=== PATIENT | female | born 1955 | race Caucasian/White ===

== ENCOUNTER → 2016-12-01 | Outpatient (CLI) | payer MEDICAID ==
[2016-12-01 07:46] LABS: Basophils % (A) 0 %; CH 31.4; CHCM 33.8; Eosinophils # (A) 0.1 k/uL (0-0.7); Eosinophils % (A) 2 %; HCT 41.1 % (34.0-46.0); HDW 2.41; HGB 13.3 gm/dL (11.4-16.0); Luc # (Auto) 0.16; Luc % (Auto) 4; Lymphocytes # (A) 1.8 k/uL (1.0-4.8); Lymphocytes % (A) 40 %; MCH 30.2 pg (25.0-35.0); MCHC 32.3 g/dL (31.0-37.0); MCV 93.4 fL (80.0-100.0); Monocytes # (A) 0.3 k/uL (0-1.0); Monocytes % (A) 7 %; Neutrophils # (A) 2.1 k/uL (1.3-7.7); Neutrophils % (A) 47 %; WBC 4.4 k/uL (3.8-10.6); WBC (Perox) 4.38
[2016-12-01 08:31] LABS: ALT 39 U/L (9-52); AST 38 U/L (14-36); Alkaline Phosphatase 82 U/L (38-126); Anion Gap 6 mmol/L; Blood Urea Nitrogen 20 mg/dL (7-17); Calcium 9.6 mg/dL (8.4-10.2); Carbon Dioxide 31 mmol/L (22-30); Chloride 103 mmol/L (98-107); Cholesterol 209 mg/dL (<200); Creatine Kinase 82 U/L (30-135); Glucose 86 mg/dL (74-99); HDL Cholesterol 37 mg/dL (40-60); Non-African American GFR(MDRD) >60 (>60 ml/min/1.73 sqM); Potassium 4.8 mmol/L (3.5-5.1); Sodium 140 mmol/L (137-145); Total Bilirubin 0.5 mg/dL (0.2-1.3); Total Protein 7.3 g/dL (6.3-8.2); Triglycerides 130 mg/dL (<150)
== END | disposition home or self-care (01) ==
LOC: LABWHC1 06:52
PROVIDERS: ATTEND Internal Medicine
DX: E78.00 Pure hypercholesterolemia, unspecified (principal); I10 Essential (primary) hypertension
CPT/HCPCS: 36415; 80053; 80061; 82550; 84443; 85025

== ENCOUNTER → 2017-02-04 | Outpatient (CLI) | payer MEDICAID ==
[2017-02-04 10:05] LABS: ALT 47 U/L (9-52); AST 41 U/L (14-36); Cholesterol 240 mg/dL (<200); Creatine Kinase 147 U/L (30-135); HDL Cholesterol 38 mg/dL (40-60); Triglycerides 165 mg/dL (<150)
== END | disposition home or self-care (01) ==
LOC: LABWHC1 09:48
PROVIDERS: ATTEND Internal Medicine
DX: E78.00 Pure hypercholesterolemia, unspecified (principal)
CPT/HCPCS: 36415; 80061; 82550; 84450; 84460

== ENCOUNTER → 2017-04-08 | Outpatient (CLI) | payer MEDICAID ==
[2017-04-08 07:59] LABS: Cholesterol 172 mg/dL (<200); HDL Cholesterol 44 mg/dL (40-60)
== END | disposition home or self-care (01) ==
LOC: LABWHC1 07:14
PROVIDERS: ATTEND Internal Medicine
DX: E78.00 Pure hypercholesterolemia, unspecified (principal)
CPT/HCPCS: 36415; 80061

== ENCOUNTER → 2017-05-31 | Outpatient (CLI) | payer MEDICAID ==
--- NOTE | 2017-06-01 07:22 | USB ---
Reason for exam: additional evaluation requested from abnormal screening. History: Patient is postmenopausal. Family history of breast cancer in sister at age 52. Took hormonal contraceptives for 4 years. Physical Findings: Nurse did not find any significant physical abnormalities on exam. US Breast Workup Limited RT Right breast ultrasound demonstates a 0.9 x 0.5 x 0.7cm irregular, solid, hypoechoic lesion at 9 o'clock for which a biopsy is recommended. These results were verbally communicated with the patient and result sheet given to the patient on 05/31/17. ASSESSMENT: Suspicious, BI-RAD 4 RECOMMENDATION: Ultrasound core biopsy of the right breast. (9 o'clock). Called Dr. Jc with mammographic findings and has scheduled an appointment for the patient for 05/3017 at 10:[address] Winters. Biopsy scheduled for 06/02/17 at 8:00. PRELIMINARY REPORT CALLED AND FAXED TO DR. WINTERS ON 05/31/17.
== END | disposition home or self-care (01) ==
LOC: RADMAMWWP 14:58
PROVIDERS: ATTEND Obstetrics & Gynecology
DX: R92.8 Other abnormal and inconclusive findings on diagnostic imaging of breast (principal)

== ENCOUNTER → 2017-06-02 | Day surgery (SDC) | payer MEDICAID ==
[2017-06-02 07:43] VITALS: RESP 16; TEMP 98.2; BMI 28.0
[2017-06-02 08:48] VITALS: BP 145/83; PULSE 66
--- NOTE | 2017-06-02 09:12 | USB ---
EXAMINATION TYPE: US biopsy breast VAD RT, MG diagnostic mammo RT wo CAD DATE OF EXAM: 06/02/2017 CLINICAL HISTORY: R92.8 Abn mammogram. TECHNIQUE: Ultrasound guided core biopsy of the right breast mass located at the 9:00 position. COMPARISON: 05/31/2017 FINDINGS: The procedure of ultrasound guided core biopsy was explained to the patient. Benefits, alternatives, and risks were discussed. An informed consent was then obtained. The patient was placed in supine positioning for imaging and for the procedure. The overlying skin was prepped and draped in usual sterile fashion. 8 cc of lidocaine without epinephrine was used as anesthetic into the skin and 7 cc of lidocaine with epinephrine was utilized to anesthetize the subcutaneous tissue up to area of concern in the right breast (0.9 x 0.5 x 0.7 cm irregular, solid, hypoechoic mass at the 9:00 position). Under ultrasound guidance, a 12-gauge vacuum assisted biopsy gun device was used to obtain 7 core samples. Following this, a ribbon-shaped biopsy marker was left in lesion. Postprocedural mammography was performed in the MLO and CC projection with identification of the clip in the mammographic mass without migration. The patient tolerated the procedure well without any immediate complication. The patient was kept in the radiology department for short stay after the procedure and then discharged home in stable condition. IMPRESSION: Successful, uncomplicated ultrasound guided core biopsy of a 0.9 x 0.5 x 0.7 cm irregular, solid, hypoechoic mass at the 9:00 position, full pathology results to follow. Pathology Results: Malignant BREAST, RIGHT, ULTRASOUND GUIDED CORE BIOPSY: INVASIVE DUCTAL CARCINOMA. Recommendation Surgical consult of the right breast. SHAHZAD
== END ==
LOC: RADUSWWP 07:01
PROVIDERS: ATTEND Surgery
DX: C50.911 Malignant neoplasm of unspecified site of right female breast (principal)
CPT/HCPCS: 88305; 19083; G0206; A4648; J2001

== ENCOUNTER 2017-06-10 10:55 | Day surgery (SDC) | payer MEDICAID ==
[2017-06-09 11:52] VITALS: BMI 28.4
[2017-06-10 11:17] VITALS: TEMP 98.4
[2017-06-10] MEDS ORDERED: LACTATED RINGERS 1,000 ML IV ONE (11:33)
[2017-06-10] MEDS ORDERED: LIDOCAINE 1% 20 ML VIAL (10MG/ML) FOR IV START INTRADERMA ONE (11:34)
[2017-06-10] MEDS ORDERED: LIDOCAINE 1% INJ 10MG/ML (20 ML MDV) ONE (11:49)
[2017-06-10] MEDS ORDERED: PROPOFOL 10 MG/ML 20 ML VIAL IV ONE (11:49)
--- NOTE | 2017-06-10 12:09 | P.PCN ---
Date of Procedure: 06/10/17 Procedure(s) Performed: BRIEF HISTORY: Patient is a 62-year-old pleasant , white female, scheduled for an elective colonoscopy as a part of evaluation of prior history of colon polyps. Her last colonoscopy was in 5 years ago. PROCEDURE PERFORMED: Colonoscopy. PREOPERATIVE DIAGNOSIS: History of colon polyps. IV sedation per Anesthesia. PROCEDURE: After informed consent was obtained, the patient, was brought into the endoscopy unit. IV sedation was administered by Anesthesia under continuous monitoring. Digital rectal examination was normal. Initially the Olympus CF- 160 flexible video colonoscope was then inserted in the rectum, gradually advanced into the cecum without any difficulty. Careful examination was performed as the scope was gradually being withdrawn. Ileocecal valve and the appendiceal orifice were visualized and appeared normal. Prep was excellent. Mucosa of the cecum, ascending colon, transverse colon, descending colon, sigmoid colon, and rectum appeared normal. Scattered sigmoid diverticula seen. Retroflexion was performed in the rectum and no lesions were seen. The patient tolerated the procedure well. IMPRESSION: Normal-appearing colon from rectum to cecum with no evidence of colorectal neoplasia Scattered sigmoid diverticulosis . RECOMMENDATIONS: Findings of this examination were discussed with the patient as well as her family. She was advised to have a repeat surveillance colonoscopy in 5 years because of the prior history of colon polyps..
[2017-06-10 12:13] VITALS: RESP 15
[2017-06-10 12:42] VITALS: BP 155/78; PULSE 61
== END 2017-06-10 13:07 | disposition home or self-care (01) ==
LOC: ORWHC2ENDO 10:55
PROVIDERS: ATTEND Internal Medicine Gastroenterology
DX: Z12.11 Encounter for screening for malignant neoplasm of colon (principal); K57.30 Diverticulosis of large intestine without perforation or abscess without bleeding; Z86.010 Personal history of colon polyps; I10 Essential (primary) hypertension; E78.5 Hyperlipidemia, unspecified; Z79.899 Other long term (current) drug therapy
CPT/HCPCS: J2001; J2704; G0105

== ENCOUNTER → 2017-06-12 | Outpatient (CLI) | payer MEDICAID ==
--- NOTE | 2017-06-15 07:57 | BMR ---
EXAMINATION TYPE: MR breast BILAT wo/w con DATE OF EXAM: 06/12/2017 COMPARISON: Screening mammogram dated 05/25/2017, right breast ultrasound dated 05/31/2017, and right breast biopsy dated 06/02/2017. HISTORY: Rt breast cancer, rt shoulder/neck pain TECHNIQUE: A series of fat and water weighted images in the long and short axis views of both breasts are obtained in conjunction with dynamic contrast MRI with subtraction technique. The patient was i njected with 7.5 mL intravenous Gadavist gadolinium contrast. Three-dimensional and additional post processing imaging is created on independent workstation and reviewed during official interpretation of this study. FINDINGS: There is mild symmetric background parenchymal enhancement in breasts that are composed of heterogeno us fibroglandular tissue. No suspicious axillary, internal mammary, or intramammary adenopathy are se en within either breast. Corresponding to the 0.9 x 0.5 x 0.7 cm irregular solid mass at the 9:00 position, biopsy proven inva sive ductal carcinoma, there is an approximately 0.9 x 0.6 x 0.7 cm enhancing mass within the right b reast approximately 7 cm from the nipple at the 9:00 position containing susceptibility artifact from the biopsy marker. This demonstrates type persistent and plateau (type I and type II) kinetics. No o ther suspicious areas of mass or nodule mass enhancement are seen within the right breast. At the 6-6:30 position within the left breast at middle depth on series 301 image 16 and series 701 i mage 38 there is a T2 hyperintense and T1 hypointense 0.4 x 0.6 cm mass demonstrating persistent type I kinetics seen on series 301 image 15, series 701 image 234 and series 701 image 231. No other susp icious mass or nonmass enhancement is seen within the left breast. IMPRESSION: 1. BI-RADS 3-Hvntki-vqkvhj invasive ductal carcinoma within the right breast at the 9:00 position. No evidence of multifocality or multicentricity within the right breast. No suspicious internal mammary , axillary or intramammary adenopathy. 2. Second look ultrasound is recommended for a 0.6 cm mass within the left breast at the 6-6:30 posit ion at middle depth approximately 6 cm from the nipple. Although this is T2 hyperintense this does de monstrate low-grade enhancement. Considerations are for fibroadenoma, inflammatory cyst, or neoplasm. If this is seen under ultrasound percutaneous biopsy is recommended, if not identified on ultrasound MR guided biopsy would be recommended
== END ==
LOC: RADMRIMAIN 09:04
PROVIDERS: ATTEND Surgery
DX: C50.811 Malignant neoplasm of overlapping sites of right female breast (principal)
CPT/HCPCS: 77059; 0159T; A9581

== ENCOUNTER → 2017-06-16 | Outpatient (CLI) | payer MEDICAID ==
--- NOTE | 2017-06-16 10:27 | USB ---
Reason for exam: additional evaluation requested from abnormal screening. History: Patient is postmenopausal and has history of breast cancer at age 62. Family history of breast cancer in sister at age 52. Malignant US biopsy breast VAD RT of the right breast, June 02, 2017. Took hormonal contraceptives for 4 years. US Breast LT Left breast ultrasound includes all four quadrants, the retroareolar region and axilla. Finding demonstrates a 6 x 2 x 3mm oval, cystic lesion at 7 o'clock 4.1cm from nipple, demonstrating increasing through transmission and a well defined posterior wall. This corresponds with the MRI finding. Type 1 persistent enhancement is thought to represent background parenchymal enhancement corresponding to dense tissue background that this cyst is within. These results were verbally communicated with the patient and result sheet given to the patient on 06/19/17. ASSESSMENT: Benign, BI-RAD 2 RECOMMENDATION: Localization and excision of the left breast. (surgical excision on the known right breast cancer)
== END | disposition home or self-care (01) ==
LOC: RADUSWWP 08:04
PROVIDERS: ATTEND Surgery
DX: Z08 Encounter for follow-up examination after completed treatment for malignant neoplasm (principal); Z85.3 Personal history of malignant neoplasm of breast

== ENCOUNTER → 2017-07-08 | Day surgery (SDC) | payer MEDICAID ==
[2017-07-06 10:58] VITALS: BMI 27.8
[~2017-07-08] MED LIST: ALPRAZolam 0.25 MG TAB PO PRN; DEXAMETHASONE SOD PHOSPHATE 10 MG/ML 1 ML VIAL IV ONE; HEPARIN SODIUM,PORCINE 5,000 UNIT/ML 1 ML VIAL SQ ONE; HYDROcodone/APAP 5-325MG 1 EACH TAB PO ONE; HYDROcodone/APAP 5-325MG 1 EACH TAB PO PRN; HYDROmorphone 0.5 MG/0.5 ML SYRINGE IVP ONE; LACTATED RINGERS 1,000 ML IV ONE; LACTATED RINGERS 1,000 ML IV SCH; LIDOCAINE 1% 20 ML VIAL (10MG/ML) FOR IV START INTRADERMA ONE; LIDOCAINE 1% INJ 10MG/ML (20 ML MDV) ONE; LIDOCAINE 1% INJ 10MG/ML (20 ML MDV) SQ ONE; MIDAZOLAM 2 MG/2 ML VIAL ONE; NALOXONE 0.4 MG/ML 1 ML VIAL IV PRN; ONDANSETRON 4 MG/2 ML VIAL IVP ONE; PROPOFOL 10 MG/ML 20 ML VIAL IV ONE; Pre Op ABX Message 1 EACH MISC MISCELLANE ONE; SODIUM BICARB 4% 5 ML VIAL (0.48 MEQ/ML) MISCELLANE ONE; SODIUM CHLORIDE 0.9% 50 ML with ceFAZolin 2,000 MG IV ONE; SUCCINYLCHOLINE CHLORIDE 100 MG/5 ML SYR IV ONE; fentaNYL (PF) 50 MCG/ML 2 ML AMP IV PRN; fentaNYL (PF) 50 MCG/ML 2 ML AMP ONE; traMADol 50 MG TAB PO PRN
--- NOTE | 2017-07-08 09:38 | HP ---
HISTORY AND PHYSICAL CHIEF COMPLAINT: Right breast cancer. HISTORY OF PRESENT ILLNESS: Patient is a 62-year-old female who was seen in the office recently after a diagnostic mammogram and ultrasound revealed a 9 mm mass in the right breast. Ultrasound guided core biopsy revealed invasive ductal cancer. FAMILY HISTORY: Breast cancer in her sister. She does not believe her sister had genetic testing performed. Patient was otherwise asymptomatic. No prior biopsies. Patient had an MRI of bilateral breasts showing the biopsy-proven breast cancer at 9 o'clock with no evidence of multifocality and no suspicious adenopathy. A second-look ultrasound was recommended for a left breast lesion at 6 o'clock. On this second-look, this was thought to be benign. Patient's receptors are ER [place] positive, HER2 [place] negative. She was seen by Oncology for genetic testing, but has decided because of challenges with her insurance coverage to forego those results in the interest of proceeding with lumpectomy, which the patient is interested in. PAST MEDICAL HISTORY: Hypertension, hypercholesterolemia. PAST SURGICAL HISTORY: Tubal ligation, right finger. MEDICATIONS: 1. Hydrochlorothiazide. 2. MVI. 3. Livalo. 4. Fish oil. 5. CoQ 10. ALLERGIES: None. PHYSICAL EXAM: HEENT is normocephalic. Sclerae is nonicteric. CHEST: No deformities. Right breast with recent scar noted. No palpable abnormalities. No adenopathy. Left breast without masses or adenopathy. ABDOMEN: Soft, nontender, nondistended. EXTREMITIES: Without edema. IMPRESSION: A 62-year-old female with newly diagnosed right breast cancer. PLAN: Will proceed with right breast lumpectomy with sentinel lymph node biopsy and wire localization. I will discuss the recent breast ultrasound with Radiology. There may be a typo on that report where they recommend localization and excision of the left breast. The risks of the procedure were discussed in detail with the patient. These were noted to include, but not limited to, bleeding, infection, recurrence, scarring, dimpling, nerve injury, seroma, possible need for additional surgery based on margin results and lymph node findings, possible need for axillary dissection. Additionally, it was discussed with the patient that if her genetic testing did come back positive for BRCA1 or 2, bilateral mastectomy may be reconsidered. The patient understands these risks and wished to proceed. MMODL / IJN: [id number] /
--- NOTE | 2017-07-08 12:43 | NM ---
EXAMINATION TYPE: NM sentinel node injection DATE OF EXAM: 07/08/2017 COMPARISON: NONE HISTORY: Right-sided breast cancer TECHNIQUE AND FINDINGS: The procedure of sentinel lymph node injection was explained to the patient. The benefits, alternatives, and risks were discussed. An informed consent was then obtained. Overlying skin is cleaned with sterile alcohol. Lidocaine buffered with bicarbonate was used as anes thetic into the skin and subcutaneous tissue surrounding the nipple. Following this, 561 uCi Tc 99m Filtered Sulfur Colloid was injected into 4 equivalent doses at 12, 3, 6, and 9:00 position surroundi ng the right nipple intradermally. The injection sites were massaged by orthopaedic technologist for 10 minutes after injection. T he patient tolerated the procedure well without any immediate complication. The patient was kept in the radiology department for short stay after the procedure and then taken to surgery for surgical pr ocedure what is presumed intraoperative gamma probe will be used for sentinel lymph node detection. IMPRESSION: Right breast radiotracer injection for sentinel node localization as above.
[2017-07-08 15:13] VITALS: TEMP 97.6
[2017-07-08 15:18] VITALS: RESP 16
--- NOTE | 2017-07-08 15:38 | MM ---
EXAM: Needle localization with wire placement. CLINICAL HISTORY: Biopsy-proven invasive ductal carcinoma June 02, 2017 TECHNIQUE: Needle localization with wire placement and surgical excision of area of concern in the right breast. COMPARISON: Right breast mammogram and ultrasound June 02, 2017 and older studies. FINDINGS: The procedure of needle localization with wire placement and than surgical excision was explained to the patient. Benefits, alternatives, and risks were discussed. An informed consent was then obtained. The shortest pathway for procedure was chosen. Shortest pathway was lateral approach. The overlying skin was prepped and draped in usual sterile fashion. Lidocaine was used as anesthetic into the skin and subcutaneous tissue up to the level of area of concern. A 7 cm needle was used. It was placed via a lateral approach under mammographic guidance. Subsequent 90 degrees mammogram show the needle to be in satisfactory position relative to the targeted area. At this point, wire was placed and the needle was withdrawn. The wire was fixed to patient's skin. Images were marked for surgeon. The patient tolerated the procedure well without any immediate complication. The patient was kept in the radiology department for short stay after the procedure and then taken to surgery for surgical excision. Targeted clip and wire are identified in specimen mammogram. The patient was kept in hospital for short stay after the procedure and then discharged home in stable condition. IMPRESSION: Successful, uncomplicated needle localization with wire placement and surgical excision of targeted biopsy clip in the right breast, full pathology results to follow. Pathology Results: Malignant A. LYMPH NODE, RIGHT SENTINEL #1, BIOPSY: LYMPH NODE NEGATIVE FOR METASTASIS, TRISTIN AND CYTOKERATIN IMMUNOHISTOCHEMICAL STAINS ARE CONFIRMATORY (CONTROLS APPROPRIATE). B. LYMPH NODE, RIGHT SENTINEL #2, BIOPSY: LYMPH NODE NEGATIVE FOR METASTASIS, TRISTIN AND CYTOKERATIN IMMUNOHISTOCHEMICAL STAINS ARE CONFIRMATORY (CONTROLS APPROPRIATE). C. LYMPH NODE, RIGHT SENTINEL #3, BIOPSY: LYMPH NODE NEGATIVE FOR METASTASIS, TRISTIN AND CYTOKERATIN IMMUNOHISTOCHEMICAL STAINS ARE CONFIRMATORY (CONTROLS APPROPRIATE). D. BREAST, RIGHT, WIRE GUIDED LOCALIZATION AND RESECTION: INVASIVE DUCTAL CARCINOMA, DUCT CARCINOMA IN SITU, FIBROCYSTIC CHANGE WITH FOCAL ATYPICAL DUCTAL HYPERPLASIA. ATYPICAL LOBULAR HYPERPLASIA. SCAR. E. BREAST, RIGHT, NEW LATERAL MARGIN, EXCISIONAL BIOPSY: BENIGN BREAST WITH PROMINENT ADIPOSE TISSUE AND FIBROCYSTIC CHANGE. BENIGN LYMPH NODE. F. BREAST, RIGHT, NEW SUPERIOR MARGIN, BIOPSY: BENIGN BREAST WITH PROMINENT ADIPOSE TISSUE AND FIBROCYSTIC CHANGE. BENIGN LYMPH NODE. Recommendation Appropriate therapy and follow up. [facility]
[2017-07-08 16:18] VITALS: BP 147/66; PULSE 70
--- NOTE | 2017-07-08 16:45 | P.OP ---
Date of Procedure: 07/08/17 Procedure(s) Performed: PREOPERATIVE DIAGNOSIS: Right breast cancer POSTOPERATIVE DIAGNOSIS: Same PROCEDURE: Right Breast wire localization lumpectomy with sentinel lymph node biopsy SURGEON: Vianey EBL: Minimal ANESTHESIA: General COMPLICATIONS: None OPERATIVE PROCEDURE: Patient was placed on the operating room table in the supine position. 2 mL of methylene blue was injected into the subareolar space. The breast was then massaged for 5 minutes. The right axilla was addressed at that time. The hot spot in the right axilla was identified. A small curvilinear incision was made using the scalpel. Dissection down through the tic anus tissues took place using electrocautery. Using the neoprobe I identified a total of 3 sentinel lymph nodes. 2 of these were blue in color. These were all removed and sent to pathology for close examination. Frozen sections from these lymph nodes were negative for metastatic disease. No bleeding was seen. The subcutaneous tissues were closed using 3-0 Vicryl sutures. The skin was closed using 4-0 Monocryl sutures. The wire entrance site was then addressed. This was present at the 9:00 location. A curvilinear incision was made medial to the wire entrance site. I followed the wire down into the breast tissue. An adequate lumpectomy specimen then took place around the wire. Margins of 1.5-2 cm worth attempted to be achieved. Upon palpation of the specimen I felt that the closest margins were likely the lateral and superior margin. For that reason an additional small portion of superior and lateral margins were removed. Later after formal closure the lumpectomy specimen was colored the appropriate 6 colors and the new margin of the superior and the lateral specimen were also painted the appropriate color. The BioSorb sizers were utilized. I chose to place a 2 x 3 cm BioSorb into the lumpectomy site. This was sutured circumferentially using 3-0 Vicryl sutures. The lumpectomy cavity was also closed using 3-0 Vicryl sutures. The skin was closed using a running 4-0 Monocryl stitch. Steri-Strips and sterile dressings were applied. DISPOSITION: Stable to recovery room
--- NOTE | 2017-07-14 15:05 | CDI ---
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 Please respond to the clarification below the line at the bottom and electronically sign. The CDI & [facility] Coding staff will review the response and follow-up if needed. Please note: Queries are made part of the Legal Health Record. If you have any questions, please contact the author of this message via ITS. Dr. Winters Ms Conklin was seen on 07/08 for breast lumpectomy and sentinel lymph node biopsy. The depth of the sentinel lymph node that was biopsied is needed for clarification purposes. Please clarify if the depth of the lymph node was: Deep Superficial/ Simple Other, please specify Unable to determine Thank you very much for your time. Location for sentinel node is deep. [facility]
== END ==
LOC: OR 10:31
PROVIDERS: ATTEND Surgery
DX: C50.811 Malignant neoplasm of overlapping sites of right female breast (principal); I10 Essential (primary) hypertension; E78.00 Pure hypercholesterolemia, unspecified; E78.5 Hyperlipidemia, unspecified; Z87.891 Personal history of nicotine dependence; Z79.899 Other long term (current) drug therapy; Z80.3 Family history of malignant neoplasm of breast
CPT/HCPCS: 19301; 38525; 88342; 88331; 88307; 88341; 76098; 19281; 38792; A4648; A9541; J2250; J1644; J1100; J2405; J2001; J3010; J0690; J0330; J2704; J1170

== ENCOUNTER → 2017-08-19 | Outpatient (CLI) | payer MEDICAID ==
--- NOTE | 2017-08-19 21:55 | BD ---
EXAMINATION TYPE: MG DEXA axial skeleton. DATE OF EXAM: 08/19/2017 COMPARISON: 09.26.2015 CLINICAL HISTORY: 62 YR OLD FEMALE: ICD-10 CODE: C50.81 MALIG. NEOPLASM OF OVERLAPPING BREAST Height: 66.3 Weight: 180 FRAX RISK QUESTIONS: Alcohol (3 or more units per day): NO Family History (Parent hip fracture): NO Glucocorticoids (More than 3mos): NO (Ex: prednisone, prednisolone, methylprednisolone, dexamethasone, and hydrocortisone). History of Fracture in Adulthood: NO Secondary Osteoporosis: NO 1. Type 1 Diabetes: NO 2. Hyperthyroidism: NO 3. Menopause before 45: NO 4. Malnutrition: NO 5. Chronic liver disease: NO Rheumatoid Arthritis: NO Current Tobacco Use: NO RISK FACTORS HISTORY OF: FINGER ONLY...<50 YRS OLD Family History of Osteoporosis: NO Active: YES Diet low in dairy products/other sources of calcium: NO Postmenopausal woman: NATURAL AT AGE 57 YRS OLD Hyperparathyroidism: NO Adrenal Insufficiency: NO MEDICATIONS: Additional Medications: ANTI-ESTROGEN ARLEN, BP MEDS, HX OF BREAST CA, 2016, MULTIVITAMIN, VIT E, STATIN FOR CHOLESTEROL. Additional History: HX OF BREAST CANCER, EXAM MEASUREMENTS: Bone mineral densitometry was performed using the CRMnext System. Bone mineral density as measured about the Lumbar spine is: ----- L1-L4(G/cm2): 1.394 T Score Values are as follows: ----- L1: 0.3 ----- L2: 1.1 ----- L3: 2.6 ----- L4: 2.6 ----- L1-L4: 1.8 Bone mineral density has: Increased 0.6% since study of: 09.26.2015 Bone mineral density about the R hip (g/cm2): 1.123 Bone mineral density about the L hip (g/cm2): 1.040 T Score values are as follows: -----R Neck: -0.5 -----L Neck: -0.8 -----R Total: 0.9 -----L Total: 0.3 Bone mineral density has: Decreased -1.6% since study of: 09.26.2015 FRAX%S: THEREIS A 6.8% CHANCE OF A MAJOR OSTEOPOROTIC FX AND A 0.3% FOR HIP FX.....PROBABILITY OF FX IN 10 YRS TIME IMPRESSION: Normal (Values between +1 and -1 indicate normal bone mass). Consider repeating this study in 5 year s or sooner if there is some new clinical indication. NOTE: T-SCORE=SD OF THE YOUNG ADULT MEAN.
== END | disposition home or self-care (01) ==
LOC: RADBDWWP 07:17
PROVIDERS: ATTEND Internal Medicine Hematology & Oncology
DX: C50.811 Malignant neoplasm of overlapping sites of right female breast (principal); N95.1 Menopausal and female climacteric states
CPT/HCPCS: 77080

== ENCOUNTER → 2017-09-14 | Outpatient (CLI) | payer MEDICAID ==
--- NOTE | 2017-09-20 11:28 | HM ---
HOLTER MONITOR REPORT The patient was monitored for 24 hours. The baseline rhythm is normal sinus rhythm with normal conduction. The average rate 63 beats per minute, minimum 49, maximum 141 beats per minute. Ventricular ectopic activity was present in the form of rare single PVCs. Supraventricular ectopic activity was present in form of rare single PACs. There was short bursts of atrial fibrillation at different times during the tracings. No diary was available. CONCLUSION: 1. Sinus mechanism baseline rhythm with short bursts of paroxysmal atrial fibrillation. 2. Rare ventricular ectopic activity. 3. Rare supraventricular ectopic activity. 4. No diary was available. MMODL / IJN: [id number] /
== END | disposition home or self-care (01) ==
LOC: RADECHMAIN 12:04
PROVIDERS: ATTEND Internal Medicine Interventional Cardiology
DX: I48.0 Paroxysmal atrial fibrillation (principal); I49.3 Ventricular premature depolarization
CPT/HCPCS: 93225; 93226

== ENCOUNTER → 2017-10-20 | Outpatient (CLI) | payer MEDICAID ==
[2017-10-20 08:49] LABS: Basophils % (A) 0 %; Eosinophils # (A) 0.1 k/uL (0-0.7); Eosinophils % (A) 3 %; HCT 39.4 % (34.0-46.0); HGB 13.1 gm/dL (11.4-16.0); Lymphocytes # (A) 0.7 k/uL (1.0-4.8); Lymphocytes % (A) 17 %; MCH 29.6 pg (25.0-35.0); MCHC 33.2 g/dL (31.0-37.0); Mean Platelet Volume 6.9; Monocytes # (A) 0.3 k/uL (0-1.0); Monocytes % (A) 8 %; Neutrophils # (A) 2.8 k/uL (1.3-7.7); Neutrophils % (A) 71 %; Platelet Count 250 k/uL (150-450); RBC 4.43 m/uL (3.80-5.40); RDW 13.2 % (11.5-15.5)
[2017-10-20 08:56] LABS: Appearance,Urine Clear (Clear); Bilirubin,Urine Negative (Negative); Blood,Urine Negative (Negative); Color,Urine Yellow; Glucose,Urine (UA) Negative (Negative); Ketones,Urine Negative (Negative); Leukocyte Esterase,Urine Trace (Negative); Mucus,Urine Rare /hpf; Nitrite,Urine Negative (Negative); PH, Urine 7.5 (5.0-8.0); Protein,Urine Trace (Negative); RBC,Urine 1 /hpf (0-5); Specific Gravity,Urine 1.018 (1.001-1.035); Squamous Epithelial Cell,Urine <1 /hpf (0-4); Urobilinogen,Urine <2.0 mg/dL (<2.0); WBC,Urine 2 /hpf (0-5)
[2017-10-20 09:51] LABS: ALT 57 U/L (9-52); AST 42 U/L (14-36); Albumin 4.4 g/dL (3.5-5.0); Alkaline Phosphatase 88 U/L (38-126); Anion Gap 12 mmol/L; Blood Urea Nitrogen 21 mg/dL (7-17); Calcium 9.8 mg/dL (8.4-10.2); Carbon Dioxide 29 mmol/L (22-30); Chloride 100 mmol/L (98-107); Cholesterol 158 mg/dL (<200); Creatine Kinase 82 U/L (30-135); Glucose 86 mg/dL (74-99); HDL Cholesterol 36 mg/dL (40-60); LDL Cholesterol,Calculated 97 mg/dL (0-99); Magnesium 2.1 mg/dL (1.6-2.3); Potassium 4.6 mmol/L (3.5-5.1); Sodium 141 mmol/L (137-145); T4, Free (Free Thyroxine) 0.91 ng/dL (0.78-2.19); Total Bilirubin 0.4 mg/dL (0.2-1.3); Total Protein 7.1 g/dL (6.3-8.2); Triglycerides 123 mg/dL (<150); Uric Acid 5.2 mg/dL (3.7-7.4)
[2017-10-20 19:31] LABS: Hemoglobin A1C 5.5 % (4.0-6.0)
== END | disposition home or self-care (01) ==
LOC: LABWHC1 08:31
PROVIDERS: ATTEND Internal Medicine
DX: I10 Essential (primary) hypertension (principal); E78.00 Pure hypercholesterolemia, unspecified
CPT/HCPCS: 36415; 80053; 80061; 81001; 82550; 83036; 83735; 84439; 84443; 84550; 85025

== ENCOUNTER → 2017-10-27 | Outpatient (CLI) | payer MEDICAID ==
--- NOTE | 2017-10-27 11:34 | US ---
EXAMINATION TYPE: US abdomen complete DATE OF EXAM: 10/27/2017 COMPARISON: NONE CLINICAL HISTORY: Abnormal results liver R94.5. Pt states recent abnormal LFT's EXAM MEASUREMENTS: Liver Length: 14.2 cm Gallbladder Wall: 0.2 cm CBD: 0.5 cm Spleen: 10.6 cm Right Kidney: 11.2 x 4.0 x 5.5 cm Left Kidney: 10.5 x 4.6 x 4.3 cm Pancreas: wnl Liver: Appeared wnl Gallbladder: wnl Evidence for sonographic Javier's sign: No CBD: wnl Spleen: wnl Right Kidney: wnl Left Kidney: wnl, lower pole gassed out Upper IVC: wnl Abd Aorta: wnl IMPRESSION: 1. No acute ultrasound abnormality.
== END | disposition home or self-care (01) ==
LOC: RADUSWWP 10:56
PROVIDERS: ATTEND Internal Medicine
DX: R94.5 Abnormal results of liver function studies (principal)
CPT/HCPCS: 76700

== ENCOUNTER → 2018-01-03 | Outpatient (CLI) | payer MEDICAID ==
--- NOTE | 2018-02-07 16:55 | EM ---
EVENT MONITOR AGE:: 62 SEX:: F INDICATIONS:: History of recurrent palpitations. The event monitor shows: 1. Sinus mechanism. 2. Short runs of nonsustained atrial tachycardia, nonsustained. 3. No Luis arrhythmias. MMODL / IJN: [id number] /
== END | disposition home or self-care (01) ==
LOC: RADECHMAIN 12:32
PROVIDERS: ATTEND Internal Medicine Interventional Cardiology
DX: I47.1 Supraventricular tachycardia (principal); I48.0 Paroxysmal atrial fibrillation
CPT/HCPCS: 93270; 93271

== ENCOUNTER → 2018-03-18 | Outpatient (CLI) | payer MEDICAID ==
--- NOTE | 2018-03-18 07:43 | US ---
EXAMINATION TYPE: US carotid duplex BILAT DATE OF EXAM: 03/18/2018 COMPARISON: NONE CLINICAL HISTORY: R09.89 Other specified symptoms and signs involvin. Bruit EXAM MEASUREMENTS: RIGHT: Peak Systolic Velocity (PSV) cm/sec ----- Right CCA: 93.8 ----- Right ICA: 93.8 ----- Right ECA: 100 ICA/CCA ratio: 1.0 RIGHT: End Diastole cm/sec ----- Right CCA: 29.8 ----- Right ICA: 44.1 ----- Right ECA: 21.7 LEFT: Peak Systolic Velocity (PSV) cm/sec ----- Left CCA: 94.4 ----- Left ICA: 116 ----- Left ECA: 105 ICA/CCA ratio: 1.23 LEFT: End Diastole cm/sec ----- Left CCA: 33.5 ----- Left ICA: 52.8 ----- Left ECA: 26.1 VERTEBRALS (direction of flow): Right Vertebral: Antegrade Left Vertebral: Antegrade Rhythm: Normal Minimal plaque bilateral bifurcations. No evidence of increased velocities. No evidence of significan t stenosis IMPRESSION: No hemodynamically significant stenosis identified. Criteria for Assigning % of Stenosis / Diameter reduction (Estimation based on the indirect measurements of the internal carotid artery velocities (ICA PSV). 1. Normal (no stenosis)=ICA PSV < 125 cm/s: ratio < 2.0: ICA EDV<40 cm/s. 2. Less than 50% stenosis=ICA PSV < 125 cm/s: ratio < 2.0: ICA EDV<40 cm/s. 3. 50 to 69% stenosis=ICA PSV of 125 to 230 cm/s: ration 2.0 ? 4.0: ICA EDV 40-100 cm/s. 4. Greater than 70% stenosis to near occlusion= ICA PSV > 230 cm/s: ratio > 4.0: ICA EDV > 100 cm/s. 5. Near occlusion= ICA PSV velocities may be low or undetectable: variable ratio and ICA EDV. 6. Total occlusion=unable to detect flow.
== END | disposition home or self-care (01) ==
LOC: RADUSWWP 07:04
PROVIDERS: ATTEND Internal Medicine Interventional Cardiology
DX: R09.89 Other specified symptoms and signs involving the circulatory and respiratory systems (principal)
CPT/HCPCS: 93880

== ENCOUNTER → 2018-04-12 | Outpatient (CLI) | payer MEDICAID ==
--- NOTE | 2018-04-12 08:16 | MM ---
Reason for exam: follow-up at short interval from prior study. Last mammogram was performed 10 months ago. History: Patient is postmenopausal and has history of breast cancer at age 62. Family history of breast cancer in sister at age 52. Malignant MG pre op needle loc RT of the right breast, July 08, 2017. Lumpectomy of the right breast, July 08, 2017. Malignant US biopsy breast VAD RT of the right breast, June 02, 2017. Radiation therapy, September 2016. Took hormonal contraceptives for 4 years. Taking antineoplastic beginning at age 62. Physical Findings: Nurse did not find any significant physical abnormalities on exam. MG 3D Diag Mammo W/Cad JAYCEE Bilateral CC and MLO view(s) were taken. XCCL and LM view(s) were taken of the right breast. Prior study comparison: June 02, 2017, right breast MG diagnostic mammo RT wo CAD. May 26, 2017, bilateral MG 3d screening mammo w/cad. The breast tissue is heterogeneously dense. This may lower the sensitivity of mammography. No significant new findings when compared with previous films. These results were verbally communicated with the patient and result sheet given to the patient on 04/12/18. ASSESSMENT: Benign, BI-RAD 2 RECOMMENDATION: Follow-up diagnostic mammogram of both breasts in 1 year.
== END | disposition home or self-care (01) ==
LOC: RADMAMWWP 06:57
PROVIDERS: ATTEND Radiology Radiation Oncology
DX: Z08 Encounter for follow-up examination after completed treatment for malignant neoplasm (principal); Z85.3 Personal history of malignant neoplasm of breast
CPT/HCPCS: 77062; 77066

== ENCOUNTER → 2018-05-19 | Outpatient (CLI) | payer MEDICAID ==
--- NOTE | 2018-05-19 14:41 | XR ---
EXAMINATION TYPE: XR wrist complete BILATERAL DATE OF EXAM: 05/19/2018 CLINICAL HISTORY: pain TECHNIQUE: Frontal, lateral and oblique images of the left wrist are obtained. COMPARISON: None. FINDINGS: There is no acute fracture/dislocation evident. The joint spaces appear within normal gonzalez its. The overlying soft tissue appears unremarkable. IMPRESSION: There is no acute fracture or dislocation seen. ICD 10 NO FRACTURE, INITIAL EVALUATION EXAMINATION TYPE: XR wrist complete BILATERAL DATE OF EXAM: 05/19/2018 CLINICAL HISTORY: pain TECHNIQUE: Frontal, lateral and oblique images of the right wrist are obtained. COMPARISON: None. FINDINGS: There is no acute fracture/dislocation evident. The joint spaces appear within normal limits. The o verlying soft tissue appears unremarkable.
--- NOTE | 2018-05-19 14:42 | XR ---
EXAMINATION TYPE: XR chest 1V DATE OF EXAM: 05/19/2018 HISTORY: Shortness of breath. COMPARISON: 07/10/2017 TECHNIQUE: Single view of the chest is submitted. FINDINGS: Demonstrated are scattered senescent parenchymal change. There is no evidence for focal infiltrate. The heart is stable. Hilar and mediastinal structures are within normal limits. Degenerative changes are seen of the dorsal spine. Postoperative changes right breast. IMPRESSION: 1. Chronic changes without evidence for acute pulmonary disease.
== END | disposition home or self-care (01) ==
LOC: RADXRMAIN 13:59
PROVIDERS: ATTEND Nurse Practitioner Family
DX: R22.1 Localized swelling, mass and lump, neck (principal); R22.30 Localized swelling, mass and lump, unspecified upper limb
CPT/HCPCS: 71045

== ENCOUNTER → 2018-05-20 | Outpatient (CLI) | payer MEDICAID ==
[2018-05-20 09:27] LABS: Basophils % (A) 0 %; Eosinophils # (A) 0.1 k/uL (0-0.7); Eosinophils % (A) 2 %; HCT 39.1 % (34.0-46.0); HGB 13.3 gm/dL (11.4-16.0); Lymphocytes % (A) 21 %; MCH 31.1 pg (25.0-35.0); MCHC 34.1 g/dL (31.0-37.0); MCV 91.1 fL (80.0-100.0); Mean Platelet Volume 6.3; Monocytes # (A) 0.3 k/uL (0-1.0); Monocytes % (A) 7 %; Neutrophils % (A) 66 %; Platelet Count 293 k/uL (150-450); RBC 4.29 m/uL (3.80-5.40); RDW 12.7 % (11.5-15.5); WBC 4.5 k/uL (3.8-10.6)
[2018-05-20 17:24] LABS: Hemoglobin A1C 5.5 % (4.0-6.0)
[2018-05-20 19:43] LABS: Albumin 4.6 g/dL (3.80-4.90); Albumin/Globulin Ratio 2.3 (1.20-2.10); Anion Gap 9.5 mmol/L (4.00-12.00); Calcium 9.7 mg/dL (8.7-10.3); Carbon Dioxide 27.5 mmol/L (21.6-31.8); LDL Cholesterol,Calculated 55.6 mg/dL (0.0-131.0); Potassium 4.7 mmol/L (3.5-5.5); Total Bilirubin 0.5 mg/dL (0.2-1.2); Total Protein 6.6 g/dL (6.2-8.2); Uric Acid 5.5 mg/dL (2.9-7.7); VLDL Calculation 18.4 mg/dL (5.00-40.00)
[2018-05-20 19:51] LABS: T4, Free (Free Thyroxine) 1.2 ng/dL (0.80-1.80)
== END | disposition home or self-care (01) ==
LOC: LABWHC1 08:38
PROVIDERS: ATTEND Nurse Practitioner Family
DX: Z00.00 Encounter for general adult medical examination without abnormal findings (principal); I10 Essential (primary) hypertension; I48.0 Paroxysmal atrial fibrillation; E78.00 Pure hypercholesterolemia, unspecified
CPT/HCPCS: 36415; 80053; 80061; 83036; 84439; 84443; 84550; 85025

== ENCOUNTER → 2018-06-30 | Outpatient (CLI) | payer MEDICAID ==
[2018-07-01 04:16] LABS: Rheumatoid Factor 10 IU/mL (0-15)
[2018-07-01 04:24] LABS: Vitamin D 25 Hydroxy 22.3 ng/mL (30.0-100.0)
[2018-07-01 04:26] LABS: ALT 35 U/L (8-44); AST 37 U/L (13-35); C Reactive Protein <0.4 mg/dL (0.0-0.8); Creatine Kinase 140 U/L (26-186); Uric Acid 4.4 mg/dL (2.9-7.7)
[2018-07-01 04:51] LABS: Cyclic Citrullinated Pep IgG NEGATIVE (NEGATIVE)
[2018-07-01 05:02] LABS: Angiotensin-1 Converting Enz. 27 U/L (8-52)
[2018-07-01 10:37] LABS: HLA B27 NEGATIVE
[2018-07-01 20:46] LABS: Vitamin D, 1, 25-Dihydroxy 44 pg/mL (20 - 79)
== END | disposition home or self-care (01) ==
LOC: LABWHC1 16:38
PROVIDERS: ATTEND Internal Medicine Rheumatology
DX: M13.0 Polyarthritis, unspecified (principal)
CPT/HCPCS: 36415; 82164; 82306; 82550; 82652; 83520; 84450; 84460; 84550; 85652; 86038; 86140; 86200; 86431; 86812

== ENCOUNTER → 2019-04-17 | Outpatient (CLI) | payer MEDICAID ==
--- NOTE | 2019-04-17 09:17 | MM ---
Reason for exam: additional evaluation requested from prior study. Last mammogram was performed 1 year ago. History: Patient is postmenopausal and has history of breast cancer at age 62. Family history of breast cancer in sister at age 52. Malignant MG pre op needle loc RT of the right breast, July 08, 2017. Lumpectomy of the right breast, July 08, 2017. Malignant US biopsy breast VAD RT of the right breast, June 02, 2017. Radiation therapy, September 2016. Took hormonal contraceptives for 4 years. Taking antineoplastic for 2 years beginning at age 62. Physical Findings: Nurse did not find any significant physical abnormalities on exam. MG 3D Diag Mammo W/Cad JAYCEE Bilateral CC and MLO view(s) were taken. Prior study comparison: April 12, 2018, bilateral MG 3d diag mammo w/cad JAYCEE. June 02, 2017, right breast MG diagnostic mammo RT wo CAD. The breast tissue is heterogeneously dense. This may lower the sensitivity of mammography. Post surgical and post therapy changes right breast. Biozorb posterior upper outer quadrant on the right. No significant new findings when compared with previous films. These results were verbally communicated with the patient and result sheet given to the patient on 04/17/19. ASSESSMENT: Probably benign, BI-RAD 3 RECOMMENDATION: Follow-up diagnostic mammogram of both breasts in 1 year.
== END | disposition home or self-care (01) ==
LOC: RADMAMWWP 07:03
PROVIDERS: ATTEND Radiology Radiation Oncology
DX: C50.411 Malignant neoplasm of upper-outer quadrant of right female breast (principal); Z17.0 Estrogen receptor positive status [ER+]; Z92.3 Personal history of irradiation
CPT/HCPCS: 77062; 77066

== ENCOUNTER → 2019-09-05 | Outpatient (CLI) | payer MEDICAID ==
--- NOTE | 2019-09-05 09:58 | BD ---
EXAMINATION TYPE: Axial Bone Density DATE OF EXAM: 09/05/2019 COMPARISON: 08/19/2017 CLINICAL HISTORY: Height: 66 IN Weight: 172 LBS RISK FACTORS HISTORY OF: Active: YES Diet low in dairy products/other sources of calcium: YES Postmenopausal woman: AGE 42 Take estrogen and/or progesterone medications: NOT NOW How long: TOOK CONTROL PILLS MEDICATIONS: Additional Medications: CALCIUM, VIT D, MULTI VIT, FEMARA, BLOOD PRESSURE MEDS, HEART MEDS, BLOOD THI NNER, CHOLESTEROL MEDS Additional History: BREAST CANCER WITH RADIATION EXAM MEASUREMENTS: Bone mineral densitometry was performed using the [employer] System. Bone mineral density as measured about the Lumbar spine is: ----- L1-L4(G/cm2): 1.355 T Score Values are as follows: ----- L2: 0.8 ----- L3: 1.3 ----- L4: 2.4 ----- L1-L4: 1.5 Bone mineral density has: Decreased -4.2% since study of: 08/19/2017 Bone mineral density about the R hip (g/cm2): 0.938 Bone mineral density about the L hip (g/cm2): 0.913 T Score values are as follows: -----R Neck: -0.7 -----L Neck: -0.9 -----R Total: 0.8 -----L Total: 0.2 Bone mineral density has: Decreased -1.4% since study of: 08/19/2017 IMPRESSION: No evidence for osteoporosis or osteopenia. NOTE: T-SCORE=SD OF THE YOUNG ADULT MEAN.
== END | disposition home or self-care (01) ==
LOC: RADBDWWP 07:59
PROVIDERS: ATTEND Internal Medicine Hematology & Oncology
DX: C50.811 Malignant neoplasm of overlapping sites of right female breast (principal); I10 Essential (primary) hypertension; E78.5 Hyperlipidemia, unspecified; Z71.3 Dietary counseling and surveillance
CPT/HCPCS: 77080

== ENCOUNTER → 2019-09-15 | Outpatient (CLI) | payer MEDICAID ==
[2019-09-15 07:24] LABS: Basophils % (A) 0 %; Eosinophils # (A) 0.1 k/uL (0-0.7); Eosinophils % (A) 2 %; HCT 39.5 % (34.0-46.0); HGB 13.3 gm/dL (11.4-16.0); Lymphocytes # (A) 1.3 k/uL (1.0-4.8); Lymphocytes % (A) 36 %; MCH 30.3 pg (25.0-35.0); MCHC 33.6 g/dL (31.0-37.0); MCV 90.2 fL (80.0-100.0); Mean Platelet Volume 6.5; Monocytes # (A) 0.3 k/uL (0-1.0); Monocytes % (A) 8 %; Neutrophils # (A) 1.8 k/uL (1.3-7.7); Neutrophils % (A) 49 %; Platelet Count 281 k/uL (150-450); RBC 4.38 m/uL (3.80-5.40); RDW 12.2 % (11.5-15.5); WBC 3.6 k/uL (3.8-10.6)
[2019-09-15 10:32] LABS: African American GFR (CKD) 79.4 (60.0-200.0); Albumin 4.4 g/dL (3.80-4.90); Albumin/Globulin Ratio 2.32 (1.60-3.17); Anion Gap 6.5 mmol/L (4.00-12.00); BUN/Creat Ratio 17.78 Ratio (12.00-20.00); Calcium 9.7 mg/dL (8.7-10.3); Carbon Dioxide 28.5 mmol/L (21.6-31.8); Chol/HDL Ratio 3.15; Globulin 1.9 g/dL (1.6-3.3); LDL Cholesterol,Calculated 58.4 mg/dL (0.0-131.0); Non-African American GFR(CKD) 68.5 (60.0-200.0); Total Bilirubin 0.6 mg/dL (0.2-1.2); Total Protein 6.3 g/dL (6.2-8.2); VLDL Calculation 14.6 mg/dL (5.00-40.00)
== END | disposition home or self-care (01) ==
LOC: LABWHC1 06:49
PROVIDERS: ATTEND Internal Medicine
DX: Z00.00 Encounter for general adult medical examination without abnormal findings (principal)
CPT/HCPCS: 36415; 80053; 80061; 84443; 85025

== ENCOUNTER 2020-02-13 19:05 | Emergency (ER) | payer MEDICAID ==
[2020-02-13 19:13] VITALS: RESP 18
[2020-02-13] MEDS ORDERED: SODIUM CHLORIDE 0.9% 500 ML 500 ML IV STA (19:37)
--- NOTE | 2020-02-13 20:09 | ED ---
Arrhythmia/Palpitations HPI - General Chief Complaint: Arrhythmia/Palpitations Stated Complaint: irregular heart rate Time Seen by Provider: 02/13/20 19:10 Source: patient Mode of arrival: wheelchair Limitations: no limitations - History of Present Illness Initial Comments: Patient is a 64-year-old female with past history of right breast cancer, hypert ension, hyperlipidemia presents to the emergency room with reported palpitations. States that her symptoms started around noon. She does have a history of paroxysmal A. fib. She takes Toprol and Xarelto. Did take her medications today as directed. Was at work when symptoms started. She states she took a second Toprol around 1:[address] Mccracken has recommended that she does this when her heart rate feels like it is fast. States she had persistent symptoms and around 6 she took an additional Toprol. She took her blood pressure which was reportedly around 140/110 systolic. Because of the elevated diastolic she did come into the car for evaluation. Reports that her palpitations are somewhat improved however still detectable. She denies any chest pain. No history of coronary disease. No cough or hemoptysis. No fevers or chills. Denies any abdominal pain. No back or flank pain. No recent medication changes. Denies significant caffeine intake. No unilateral numbness or weakness. No other alleviating, precipitating or modifying factors - Related Data Home Medications Medication Instructions Recorded Confirmed Rosuvastatin [Crestor] 10 mg PO DAILY 07/06/17 02/13/20 [place]-3 Fatty Acids/Fish Oil [Fish 1 cap PO DAILY 07/10/17 02/13/20 Oil 1,000 mg Softgel] Ubidecarenone [Co Q-10] 200 mg PO DAILY 07/10/17 02/13/20 Metoprolol Succinate (ER) [Toprol 12.5 mg PO DAILY 07/11/17 02/13/20 XL] Letrozole [Femara] 2.5 mg PO DAILY 02/13/20 02/13/20 Losartan/Hydrochlorothiazide 1 tab PO DAILY 02/13/20 02/13/20 [Losartan-Hctz 100-25 mg Tab] Multivit-Min/FA/Lycopen/Lutein 1 tab PO DAILY 02/13/20 02/13/20 [Centrum Silver Tablet] Rivaroxaban [Xarelto] 20 mg PO DAILY 02/13/20 02/13/20 cycloSPORINE [Restasis] 1 drop BOTH EYES BID 02/13/20 02/13/20 Allergies Allergy/AdvReac Type Severity Reaction Status Date / Time No Known Allergies Allergy Verified 02/13/20 20:46 Review of Systems ROS Statement: Those systems with pertinent positive or pertinent negative responses have been documented in the HPI. ROS Other: All systems not noted in ROS Statement are negative. Past Medical History Past Medical History: Cancer, Hyperlipidemia, Hypertension, Syncope Additional Past Medical History / Comment(s): occ palpitations, RIGHT BREAST CANCER, History of Any Multi-Drug Resistant Organisms: None Reported Past Surgical History: Breast Surgery, Tubal Ligation Additional Past Surgical History / Comment(s): Bilateral Cataracts WITH LENS IMPLANT, Right ARM SURGERY, right hand finger surgary, CORE BIOPSY RIGHT BREAST Past Anesthesia/Blood Transfusion Reactions: No Reported Reaction Past Psychological History: No Psychological Hx Reported Smoking Status: Never smoker Past Alcohol Use History: Occasional Past Drug Use History: None Reported - Past Family History Sister(s) Family Medical History: Cancer Additional Family Medical History / Comment(s): BREAST CANCER General Exam Limitations: no limitations General appearance: alert, in no apparent distress Head exam: Present: atraumatic, normocephalic, normal inspection Eye exam: Present: normal appearance, PERRL, EOMI. Absent: scleral icterus, conjunctival injection, periorbital swelling ENT exam: Present: normal exam, mucous membranes moist Neck exam: Present: normal inspection. Absent: tenderness, meningismus, lymphadenopathy Respiratory exam: Present: normal lung sounds bilaterally. Absent: respiratory distress, wheezes, rales, rhonchi, stridor Cardiovascular Exam: Present: regular rate, normal rhythm, normal heart sounds. Absent: systolic murmur, diastolic murmur, rubs, gallop, clicks GI/Abdominal exam: Present: soft, normal bowel sounds. Absent: distended, tenderness, guarding, rebound, rigid Extremities exam: Present: normal inspection, full ROM, normal capillary refill. Absent: tenderness, pedal edema, joint swelling, calf tenderness Back exam: Present: normal inspection Neurological exam: Present: alert, oriented X3, CN II-XII intact Psychiatric exam: Present: normal affect, normal mood Skin exam: Present: warm, dry, intact, normal color. Absent: rash Course Vital Signs 02/13/20 02/13/20 19:10 21:09 Temperature 97.9 F 97.6 F Pulse Rate 67 60 Respiratory 18 18 Rate Blood Pressure 172/81 121/69 O2 Sat by Pulse 99 98 Oximetry EKG Findings - EKG Comments: EKG Findings:: EKG demonstrates a normal sinus rhythm with a ventricular rate of 67. NC 178. QRS 80. QTC of 395. Inverted T-wave in lead 3. Peak T waves V3 through V6. J-point elevation in V2 through V6. EKG is compared to previous. Inverted T-wave in 3 is old. Medical Decision Making - Medical Decision Making Upon arrival the patient was placed into room 4. A thorough history and physical exam is performed. 12-lead EKG is obtained which demonstrates normal sinus rhythm. Peripheral IV is established. Laboratory studies were conducted. Patient is continuously monitored on cardiac monitoring. No signs of ectopy or arrhythmias. Laboratory studies are remarkable for a sodium of 135. Thyroid studies are normal. Troponin is negative. Chest x-ray is performed which does demonstrate no acute findings. I will revaluate the patient. States that she feels completely a symptomatically this time. I did offer hospital admission for cardiac monitoring however the patient requested to go home. 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 Patient may benefit from Holter monitoring. She is anticoagulated and on the Toprol. She is instructed to take her medications as directed. Return to the emergency room and she have any new or worsening symptoms patient patient was discharged home in stable condition - Lab Data Result diagrams: 02/13/20 19:55 02/13/20 19:55 Lab Results 02/13/20 02/13/20 02/13/20 Range/Units 19:55 19:55 19:55 WBC 5.7 (3.8-10.6) k/uL RBC 4.19 (3.80-5.40) m/uL Hgb 13.4 (11.4-16.0) gm/dL Hct 38.5 (34.0-46.0) % MCV 92.0 (80.0-100.0) fL MCH 32.0 (25.0-35.0) pg MCHC 34.8 (31.0-37.0) g/dL RDW 12.7 (11.5-15.5) % Plt Count 303 (150-450) k/uL Neutrophils % 66 % Lymphocytes % 24 % Monocytes % 6 % Eosinophils % 2 % Basophils % 0 % Neutrophils # 3.8 (1.3-7.7) k/uL Lymphocytes # 1.4 (1.0-4.8) k/uL Monocytes # 0.4 (0-1.0) k/uL Eosinophils # 0.1 (0-0.7) k/uL Basophils # 0.0 (0-0.2) k/uL PT 11.1 (9.0-12.0) sec INR 1.1 (<1.2) APTT 28.0 (22.0-30.0) sec Sodium 135 L (137-145) mmol/L Potassium 4.1 (3.5-5.1) mmol/L Chloride 101 (98-107) mmol/L Carbon Dioxide 25 (22-30) mmol/L Anion Gap 9 mmol/L BUN 17 (7-17) mg/dL Creatinine 0.61 (0.52-1.04) mg/dL Est GFR (CKD-EPI)AfAm >90 (>60 ml/min/1.73 sqM) Est GFR (CKD-EPI)NonAf >90 (>60 ml/min/1.73 sqM) Glucose 99 (74-99) mg/dL Calcium 9.6 (8.4-10.2) mg/dL Magnesium 2.0 (1.6-2.3) mg/dL Total Bilirubin 0.6 (0.2-1.3) mg/dL AST 41 H (14-36) U/L ALT 31 (4-34) U/L Alkaline Phosphatase 97 (38-126) U/L Troponin I (0.000-0.034) ng/mL Total Protein 7.0 (6.3-8.2) g/dL Albumin 4.4 (3.5-5.0) g/dL TSH 3.880 (0.465-4.680) mIU/L 02/13/20 Range/Units 19:55 WBC (3.8-10.6) k/uL RBC (3.80-5.40) m/uL Hgb (11.4-16.0) gm/dL Hct (34.0-46.0) % MCV (80.0-100.0) fL MCH (25.0-35.0) pg MCHC (31.0-37.0) g/dL RDW (11.5-15.5) % Plt Count (150-450) k/uL Neutrophils % % Lymphocytes % % Monocytes % % Eosinophils % % Basophils % % Neutrophils # (1.3-7.7) k/uL Lymphocytes # (1.0-4.8) k/uL Monocytes # (0-1.0) k/uL Eosinophils # (0-0.7) k/uL Basophils # (0-0.2) k/uL PT (9.0-12.0) sec INR (<1.2) APTT (22.0-30.0) sec Sodium (137-145) mmol/L Potassium (3.5-5.1) mmol/L Chloride (98-107) mmol/L Carbon Dioxide (22-30) mmol/L Anion Gap mmol/L BUN (7-17) mg/dL Creatinine (0.52-1.04) mg/dL Est GFR (CKD-EPI)AfAm (>60 ml/min/1.73 sqM) Est GFR (CKD-EPI)NonAf (>60 ml/min/1.73 sqM) Glucose (74-99) mg/dL Calcium (8.4-10.2) mg/dL Magnesium (1.6-2.3) mg/dL Total Bilirubin (0.2-1.3) mg/dL AST (14-36) U/L ALT (4-34) U/L Alkaline Phosphatase (38-126) U/L Troponin I <0.012 (0.000-0.034) ng/mL Total Protein (6.3-8.2) g/dL Albumin (3.5-5.0) g/dL TSH (0.465-4.680) mIU/L Disposition Clinical Impression: Palpitations Disposition: HOME SELF-CARE Condition: Stable Instructions (If sedation given, give patient instructions): Heart Palpitations (ED) Additional Instructions: Please call your heart doctor tomorrow and let them know about your symptoms. I do recommend Holter monitoring. Return to the emergency room for any new or worsening symptoms Is patient prescribed a controlled substance at d/c from ED?: No Referrals: Naga Edwards MD [Primary Care Provider] - 1-2 days Jose Mccracken MD [STAFF PHYSICIAN] - 1-2 days Time of Disposition: 21:19
--- NOTE | 2020-02-13 20:10 | XR ---
EXAMINATION TYPE: XR chest 2V DATE OF EXAM: 02/13/2020 COMPARISON: 05/19/2018 HISTORY: Dysrhythmia TECHNIQUE: 2 views FINDINGS: Heart and mediastinum are normal. Lungs are clear. Diaphragm is normal. Bony thorax appears normal. IMPRESSION: Normal chest. No change.
[2020-02-13 20:16] LABS: Basophils % (A) 0 %; Eosinophils # (A) 0.1 k/uL (0-0.7); Eosinophils % (A) 2 %; HCT 38.5 % (34.0-46.0); HGB 13.4 gm/dL (11.4-16.0); Lymphocytes # (A) 1.4 k/uL (1.0-4.8); Lymphocytes % (A) 24 %; MCHC 34.8 g/dL (31.0-37.0); Mean Platelet Volume 6.3; Monocytes # (A) 0.4 k/uL (0-1.0); Monocytes % (A) 6 %; Neutrophils # (A) 3.8 k/uL (1.3-7.7); Neutrophils % (A) 66 %; Platelet Count 303 k/uL (150-450); RBC 4.19 m/uL (3.80-5.40); RDW 12.7 % (11.5-15.5); WBC 5.7 k/uL (3.8-10.6)
[2020-02-13 20:33] LABS: ALT 31 U/L (4-34); AST 41 U/L (14-36); African American GFR (CKD) >90 (>60 ml/min/1.73 sqM); Albumin 4.4 g/dL (3.5-5.0); Alkaline Phosphatase 97 U/L (38-126); Anion Gap 9 mmol/L; Blood Urea Nitrogen 17 mg/dL (7-17); Calcium 9.6 mg/dL (8.4-10.2); Carbon Dioxide 25 mmol/L (22-30); Chloride 101 mmol/L (98-107); Glucose 99 mg/dL (74-99); Non-African American GFR(CKD) >90 (>60 ml/min/1.73 sqM); Potassium 4.1 mmol/L (3.5-5.1); Sodium 135 mmol/L (137-145); Total Bilirubin 0.6 mg/dL (0.2-1.3)
[2020-02-13 20:43] LABS: INR 1.1 (<1.2); Prothrombin Time 11.1 sec (9.0-12.0)
[2020-02-13 21:10] VITALS: BP 121/69; PULSE 60; TEMP 97.6
== END 2020-02-13 21:38 | disposition home or self-care (01) ==
LOC: EC 19:05
DX: R00.2 Palpitations (principal); E78.5 Hyperlipidemia, unspecified; I10 Essential (primary) hypertension; I48.0 Paroxysmal atrial fibrillation; Z85.3 Personal history of malignant neoplasm of breast; Z98.890 Other specified postprocedural states; Z79.899 Other long term (current) drug therapy; Z79.01 Long term (current) use of anticoagulants
CPT/HCPCS: 36415; 71046; 80053; 83735; 84443; 84484; 85025; 85610; 85730; 93005; 96360; 96361; 99285

== ENCOUNTER → 2020-04-22 | Outpatient (CLI) | payer MEDICAID ==
--- NOTE | 2020-04-23 07:27 | MM ---
Reason for exam: additional evaluation requested from prior study. Last mammogram was performed 1 year ago. History: Patient is postmenopausal and has history of breast cancer at age 62. Family history of breast cancer in sister at age 52 and breast cancer in paternal aunt. Malignant MG pre op needle loc RT of the right breast, July 08, 2017. Lumpectomy of the right breast, July 08, 2017. Malignant US biopsy breast VAD RT of the right breast, June 02, 2017. Radiation therapy, September 2016. Took hormonal contraceptives for 4 years. Taking antineoplastic for 2 years beginning at age 62. Physical Findings: Nurse did not find any significant physical abnormalities on exam. MG 3D Diag Mammo W/Cad JAYCEE Bilateral CC and MLO view(s) were taken. Prior study comparison: April 17, 2019, bilateral MG 3d diag mammo w/cad JAYCEE. April 12, 2018, bilateral MG 3d diag mammo w/cad JAYCEE. The breast tissue is heterogeneously dense. This may lower the sensitivity of mammography. Post lumpectomy right upper outer quadrant. No significant new findings when compared with previous films. These results were verbally communicated with the patient and result sheet given to the patient on 04/22/20. ASSESSMENT: Benign, BI-RAD 2 RECOMMENDATION: Follow-up diagnostic mammogram of both breasts in 1 year.
== END | disposition home or self-care (01) ==
LOC: RADMAMWWP 14:26
PROVIDERS: ATTEND Obstetrics & Gynecology
DX: Z08 Encounter for follow-up examination after completed treatment for malignant neoplasm (principal); Z85.3 Personal history of malignant neoplasm of breast
CPT/HCPCS: 77062; 77066

== ENCOUNTER → 2021-06-04 | Outpatient (CLI) | payer MEDICAID ==
--- NOTE | 2021-06-05 12:04 | MM ---
Reason for exam: additional evaluation requested from prior study. Last mammogram was performed 1 year and 1 month ago. History: Patient is postmenopausal and has history of breast cancer at age 62. Family history of breast cancer in sister at age 52 and breast cancer in paternal aunt. Malignant MG pre op needle loc RT of the right breast, July 08, 2017. Lumpectomy of the right breast, July 08, 2017. Malignant US biopsy breast VAD RT of the right breast, June 02, 2017. Radiation therapy, September 2016. Took hormonal contraceptives for 4 years. Taking antineoplastic for 2 years beginning at age 62. Physical Findings: Nurse Summary: 1cm nodule in the right breast at 11 o'clock (nurse dw). MG 3D Diag Mammo W/Cad JAYCEE Bilateral CC and MLO view(s) were taken. XCCL, ML, and spot compression MLO view(s) were taken of the right breast. Prior study comparison: April 22, 2020, bilateral MG 3d diag mammo w/cad JAYCEE. April 17, 2019, bilateral MG 3d diag mammo w/cad JAYCEE. The breast tissue is heterogeneously dense. This may lower the sensitivity of mammography. Post surgical and post therapy change right breast. Right posterior upper outer quadrant biozorb device. Asymmetric density along the inferior margin of the biozorb becomes less defined on the spot 3D. 6 month follow up recommended. These results were verbally communicated with the patient and result sheet given to the patient on 06/04/21. ASSESSMENT: Probably benign, BI-RAD 3 RECOMMENDATION: Follow-up diagnostic mammogram of the right breast in 6 months.
== END | disposition home or self-care (01) ==
LOC: RADMAMWWP 14:56
PROVIDERS: ATTEND Obstetrics & Gynecology
DX: R92.8 Other abnormal and inconclusive findings on diagnostic imaging of breast (principal); Z85.3 Personal history of malignant neoplasm of breast
CPT/HCPCS: 77062; 77066

== ENCOUNTER → 2021-09-16 | Outpatient (CLI) | payer MEDICAID ==
--- NOTE | 2021-09-16 18:29 | BD ---
EXAMINATION TYPE: Axial Bone Density DATE OF EXAM: 09/16/2021 COMPARISON:2019 CLINICAL HISTORY: post menopausal Height: 5'6 07/27 Weight: 191 FRAX RISK QUESTIONS: Secondary Osteoporosis: 3. Menopause before 45: y RISK FACTORS HISTORY OF: Diet low in dairy products/other sources of calcium: y Postmenopausal woman: y MEDICATIONS: Additional Medications: < Additional Medications: CALCIUM, VIT D, MULTI VIT, FEMARA, BLOOD PRESSURE MEDS, HEART MEDS, BLOOD THINNER, CHOLESTEROL MEDS Additional History: BREAST CANCER WITH RADIATION EXAM MEASUREMENTS: Bone mineral densitometry was performed using the [employer] System. Bone mineral density as measured about the Lumbar spine is: ----- L1-L4(G/cm2): 1.318 T Score Values are as follows: ----- L2: 0.4 ----- L3: 1.5 ----- L4: 2.0 ----- L1-L4:1.1 Bone mineral density has: Decreased -2.3% since study of: 09/05/2019 Bone mineral density about the R hip (g/cm2): 0.942 Bone mineral density about the L hip (g/cm2): 0.933 T Score values are as follows: -----R Neck: -0.7 -----L Neck: -0.8 -----R Total: 0.9 -----L Total: 0.3 Bone mineral density has: Increased 0.7% since study of: 09/05/2019 IMPRESSION: Normal (Values between +1 and -1 indicate normal bone mass). Consider repeating this study in 5 year s or sooner if there is some new clinical indication. NOTE: T-SCORE=SD OF THE YOUNG ADULT MEAN.
== END ==
LOC: RADBDWWP 07:17
PROVIDERS: ATTEND Internal Medicine Hematology & Oncology
DX: C50.811 Malignant neoplasm of overlapping sites of right female breast (principal); M25.50 Pain in unspecified joint
CPT/HCPCS: 77080

== ENCOUNTER → 2021-12-05 | Outpatient (CLI) | payer MEDICAID ==
--- NOTE | 2021-12-05 14:51 | MM ---
Reason for exam: follow-up at short interval from prior study. Last mammogram was performed 6 months ago. History: Patient is postmenopausal and has history of breast cancer at age 62. Family history of breast cancer in sister at age 52 and breast cancer in paternal aunt. Malignant MG pre op needle loc RT of the right breast, July 08, 2017. Lumpectomy of the right breast, July 08, 2017. Malignant US biopsy breast VAD RT of the right breast, June 02, 2017. Radiation therapy, September 2016. Took hormonal contraceptives for 4 years. Taking antineoplastic for 2 years beginning at age 62. Physical Findings: A clinical breast exam by your physician is recommended on an annual basis and results should be correlated with mammographic findings. MG 3D Diag Mammo W/Cad RT CC, MLO, and XCCL view(s) were taken of the right breast. Prior study comparison: June 04, 2021, bilateral MG 3d diag mammo w/cad JAYCEE. April 22, 2020, bilateral MG 3d diag mammo w/cad JAYCEE. The breast tissue is heterogeneously dense. This may lower the sensitivity of mammography. Improved post operative changes upper outer right breast. No new nodule seen. Results were given to the patient verbally at the time of the exam. ASSESSMENT: Benign, BI-RAD 2 RECOMMENDATION: Follow-up diagnostic mammogram of both breasts in 6 months. Back on schedule.
== END | disposition home or self-care (01) ==
LOC: RADMAMWWP 13:52
PROVIDERS: ATTEND Obstetrics & Gynecology
DX: R92.8 Other abnormal and inconclusive findings on diagnostic imaging of breast (principal)
CPT/HCPCS: 77061; 77065

== ENCOUNTER → 2022-06-26 | Outpatient (CLI) | payer MEDICAID ==
--- NOTE | 2022-06-26 10:59 | MM ---
Reason for Exam: Hx of breast cancer, conservation therapy. Last mammogram was performed 1 year(s) and 1 month(s) ago. Patient History: Menarche at age 16. First Full-Term at age 27. Postmenopausal. Breast cancer, age 62. Patient used Hormonal Contraceptives for 4 years. 07/08/2017, Lumpectomy on the Right side. 07/08/2017, Malignant Core Biopsy on the right side. 06/02/2017, Malignant Core Biopsy on the right side. 09/2016, Radiation Therapy. Paternal aunt had breast cancer. Sister had breast cancer, age 52. Tissue Density: The breast tissue is heterogeneously dense. This may lower the sensitivity of mammography. Findings: Analyzed By CAD. Pattern appears symmetrical and stable. Postsurgical changes are within the right breast. Scattered benign calcifications are present. No significant interval change is evident. No suspicious spiculated or lobular masses, cluster of microcalcifications or architectural distortion or other secondary signs of malignancy are radiographically apparent. Overall Assessment: Benign, BI-RAD 2 Management: Screening Mammogram of both breasts in 1 year. A clinical breast exam by your physician is recommended on an annual basis and results should be correlated with mammographic findings. This exam should not preclude additional follow-up of suspicious palpable abnormalities. Results were given to the patient verbally at the time of exam. Electronically signed and approved by: Emanuel Davidson D.O. Radiologis
== END | disposition home or self-care (01) ==
LOC: RADMAMWWP 10:12
PROVIDERS: ATTEND Obstetrics & Gynecology
DX: R92.8 Other abnormal and inconclusive findings on diagnostic imaging of breast (principal); Z78.0 Asymptomatic menopausal state; Z80.3 Family history of malignant neoplasm of breast
CPT/HCPCS: 77062; 77066

== ENCOUNTER 2023-01-29 05:58 | Day surgery (SDC) | payer MEDICAID ==
[2023-01-29 06:43] VITALS: TEMP 98.2
[2023-01-29] MEDS ORDERED: LACTATED RINGERS 1,000 ML IV ONE ×2 (06:52)
[2023-01-29] MEDS ORDERED: PROPOFOL 10 MG/ML 20 ML VIAL IV ONE (07:00)
--- NOTE | 2023-01-29 07:23 | P.PCN ---
Date of Procedure: 01/29/23 Procedure(s) Performed: BRIEF HISTORY: Patient is a 67-year-old pleasant white female scheduled for an elective colonoscopy as a part of prior history of colon polyps. Last colonoscopy was 5 years ago. PROCEDURE PERFORMED: Colonoscopy. PREOPERATIVE DIAGNOSIS: History of colon polyps. IV sedation per Anesthesia. PROCEDURE: After informed consent was obtained, the patient, was brought into the endoscopy unit. IV sedation was administered by Anesthesia under continuous monitoring. Digital rectal examination was normal. Initially the Olympus CF-160 flexible video colonoscope was then inserted in the rectum, gradually advanced into the cecum without any difficulty. Careful examination was performed as the scope was gradually being withdrawn. Ileocecal valve and the appendiceal orifice were visualized and appeared normal. Prep was excellent. Mucosa of the cecum, ascending colon, transverse colon, descending colon, sigmoid colon, and rectum appeared normal. Scattered sigmoid diverticulosis Retroflexion was performed in the rectum and no lesions were seen. The patient tolerated the procedure well. Impression: Normal-appearing colon with no evidence of colorectal neoplasia Scattered sigmoid diverticulosis RECOMMENDATIONS: Findings of this examination were discussed with the patient as well as a family. She was advised to have a repeat screening colonoscopy in 5 years because of the prior history of colon polyps.
[2023-01-29 07:29] VITALS: RESP 16
[2023-01-29 07:46] VITALS: BP 154/68; PULSE 51
== END 2023-01-29 08:05 | disposition home or self-care (01) ==
LOC: ORWHC2ENDO 05:58
PROVIDERS: ATTEND Internal Medicine Gastroenterology
DX: Z12.11 Encounter for screening for malignant neoplasm of colon (principal); K57.30 Diverticulosis of large intestine without perforation or abscess without bleeding; I48.91 Unspecified atrial fibrillation; I10 Essential (primary) hypertension; E78.5 Hyperlipidemia, unspecified; Z79.01 Long term (current) use of anticoagulants; Z80.0 Family history of malignant neoplasm of digestive organs; Z86.010 Personal history of colon polyps; Z85.3 Personal history of malignant neoplasm of breast; Z98.51 Tubal ligation status; Z98.890 Other specified postprocedural states
CPT/HCPCS: G0105; J2704; 45378

== ENCOUNTER → 2023-11-26 | Outpatient (CLI) | payer MEDICAID ==
--- NOTE | 2023-11-29 10:18 | MM ---
Reason for Exam: Screening (asymptomatic). Last mammogram was performed 1 year(s) and 5 month(s) ago. Patient History: Menarche at age 16. First Full-Term at age 27. Postmenopausal. Breast cancer, right, age 62. Patient used Hormonal Contraceptives for 4 years. 07/08/2017, Lumpectomy on the Right side. 07/08/2017, Malignant Core Biopsy on the right side. 06/02/2017, Malignant Core Biopsy on the right side. 09/2016, Radiation Therapy. Paternal aunt had breast cancer, age 60. Sister had breast cancer, age 52. Prior Study Comparison: 06/04/2021 Bilateral Diagnostic Mammogram, [facility]. 12/05/2021 Right Diagnostic Mammogram, [facility]. 06/26/2022 Bilateral MG 3D diag mammo w/cad JAYCEE, [facility]. Tissue Density: The breasts are heterogeneously dense, which may obscure small masses. Findings: Analyzed By CAD. Extensive postsurgical changes involving the right breast stable. Benign calcifications with no suspicious grouped calcifications. No dominant mass. Overall Assessment: Benign, BI-RAD 2 Management: Screening Mammogram of both breasts in 1 year. . Patient should continue monthly self-breast exams. A clinical breast exam by your physician is recommended on an annual basis. This exam should not preclude additional follow-up of suspicious palpable abnormalities. Note on Velma scores and lifetime risk: 1. A Velma score greater than 3% is considered moderate risk. If this is the case, consider specialist referral to assess eligibility for a risk reducing agent. 2. If overall lifetime risk for the development of breast cancer is 20% or higher, the patient may qualify for future screening with alternating mammogram and breast MRI. Electronically signed and approved by: Jones Tao M.D. Radiologis
== END | disposition home or self-care (01) ==
LOC: RADMAMWWP 14:07
PROVIDERS: ATTEND Internal Medicine
DX: Z12.31 Encounter for screening mammogram for malignant neoplasm of breast (principal); C50.911 Malignant neoplasm of unspecified site of right female breast; Z78.0 Asymptomatic menopausal state; Z80.3 Family history of malignant neoplasm of breast
CPT/HCPCS: 77063; 77067